=== PATIENT | female | born 1965 | race Caucasian/White ===

== ENCOUNTER 2017-10-04 10:19 | Day surgery (SDC) | payer OTHER ==
[2017-09-29 14:16] VITALS: BMI 29.2
[~2017-10-04 10:19] MED LIST: LACTATED RINGERS 1,000 ML IV SCH; LIDOCAINE 1% 20 ML VIAL (10MG/ML) FOR IV START INTRADERMA PRN
[2017-10-04 11:31] VITALS: RESP 16; TEMP 98.2
[2017-10-04] MEDS ORDERED: PROPOFOL 10 MG/ML 20 ML VIAL IV ONE (11:37)
[2017-10-04] MEDS ORDERED: fentaNYL (PF) 50 MCG/ML 2 ML AMP ONE (11:37)
[2017-10-04] MEDS ORDERED: LIDOCAINE 1% INJ 10MG/ML (20 ML MDV) ONE (11:37)
--- NOTE | 2017-10-04 11:39 | P.GSHP ---
History of Present Illness H&P Date: 10/04/17 Chief Complaint: Screening colonoscopy This is a 52-year-old female who presents today for screening colonoscopy. She denies a significant GI complaints. Past Medical History Past Medical History: GERD/Reflux History of Any Multi-Drug Resistant Organisms: None Reported Past Surgical History: Breast Surgery Additional Past Surgical History / Comment(s): rt breast surgery x3 to remove milk duct,rt fallopian tube removed D/T tubal preg Past Anesthesia/Blood Transfusion Reactions: No Reported Reaction Smoking Status: Current every day smoker - Past Family History Mother Family Medical History: No Reported History Father Family Medical History: Myocardial Infarction (ME) Additional Family Medical History / Comment(s): mult MIs Medications and Allergies Home Medications Medication Instructions Recorded Confirmed Type Esomeprazole Magnesium [NexIUM] 20 mg PO HS PRN 09/29/17 09/29/17 History Allergies Allergy/AdvReac Type Severity Reaction Status Date / Time codeine AdvReac severe Verified 10/04/17 11:19 heartburn Surgical - Exam Vital Signs Temp Pulse Resp BP Pulse Ox 98.2 F 95 16 122/77 100 10/04/17 11:26 10/04/17 11:26 10/04/17 11:26 10/04/17 11:26 10/04/17 11:26 - General well developed, no distress - Eyes PERRL - ENT normal pinna - Neck no masses - Respiratory normal expansion - Cardiovascular Rhythm: regular - Abdomen Abdomen: soft, non tender Assessment and Plan Assessment: We'll perform screening colonoscopy.
--- NOTE | 2017-10-04 11:58 | P.OP ---
Date of Procedure: 10/04/17 Preoperative Diagnosis: Screening colonoscopy Postoperative Diagnosis: Transverse colon polyp Procedure(s) Performed: Colonoscopy Anesthesia: MAC Surgeon: Ephraim Epps Pathology: other (Transverse colon polyp) Condition: stable Disposition: PACU Description of Procedure: The patient's placed on the endoscopy table in the lateral position. She received IV sedation. Digital rectal exam performed which revealed no abnormalities. Flexible colonoscope was then placed patient anus and passed throughout the entire colon. The ileocecal valve lesions. The cecum, and descending colon appeared normal. In the transverse colon there was a small polyp seen in this is removed with the cold forcep. The scope was then brought back into the descending and sigmoid colon and this was normal. Scope was then brought back the rectum and this was normal. Scope was withdrawn for patient.
[2017-10-04 12:40] VITALS: BP 120/85; PULSE 79
== END 2017-10-04 12:55 | disposition home or self-care (01) ==
LOC: ORWHC2ENDO 10:19
PROVIDERS: ATTEND Surgery
DX: Z12.11 Encounter for screening for malignant neoplasm of colon (principal); D12.3 Benign neoplasm of transverse colon; F17.210 Nicotine dependence, cigarettes, uncomplicated; K21.9 Gastro-esophageal reflux disease without esophagitis; Z79.899 Other long term (current) drug therapy; Z88.5 Allergy status to narcotic agent
CPT/HCPCS: 81025; 88305; 45380; J2001; J3010; J2704

== ENCOUNTER → 2017-11-27 | Outpatient (CLI) | payer OTHER ==
--- NOTE | 2017-11-28 14:39 | MM ---
Reason for exam: screening (asymptomatic). History: Patient had first child at age 33. Family history of breast cancer in maternal grandmother. Physical Findings: A clinical breast exam by your physician is recommended on an annual basis and results should be correlated with mammographic findings. MG 3D Screening Mammo W/Cad Bilateral CC and MLO view(s) were taken. No prior studies available for comparison. The breast tissue is heterogeneously dense. This may lower the sensitivity of mammography. There are two left upper outer quadrant masses at posterior depth likely nodes. Left retroareolar mass and upper central left masses are also seen at anterior depth. Right upper outer quadrant focal asymmetry at posterior depth. Right middle depth upper outer quadrant mass with calcifications and second mass just posterior to it. Right central, slightly lower outer quadrant mass at posterior depth. ASSESSMENT: Incomplete: need additional imaging evaluation, BI-RAD 0 RECOMMENDATION: Ultrasound of both breasts. [facility] will attempt to contact patient to return for ultrasound.
== END | disposition home or self-care (01) ==
LOC: RADMAMWWP 17:00
PROVIDERS: ATTEND Family Medicine
DX: Z12.31 Encounter for screening mammogram for malignant neoplasm of breast (principal); Z80.3 Family history of malignant neoplasm of breast
CPT/HCPCS: 77063; 77067

== ENCOUNTER → 2017-11-30 | Outpatient (CLI) | payer OTHER ==
--- NOTE | 2017-11-30 14:52 | USB ---
Reason for exam: additional evaluation requested from abnormal screening. History: Patient had first child at age 33. Family history of breast cancer in maternal grandmother. Physical Findings: Nurse Summary: 0.25cm movable nodule at 12 o'clock and 9 o'clock (nurse em). US Breast Workup JOSÉ Right breast ultrasound includes all four quadrants, the retroareolar region and axilla. Finding demonstrates a 5 x 4 x 4mm oval, cystic lesion at 12 o'clock, a 9 x 5 x 10mm lobular, solid, hypoechoic lesion at 1 o'clock, a 4 x 3 x 5mm oval, cystic lesion at 3 o'clock, a 9 x 6 x 9mm lobular, solid lesion at 6 o'clock and a 6 x 4 x 5mm lobular, hypoechoic lesion at 10 o'clock. Left breast ultrasound includes all four quadrants, the retroareolar region and axilla. Finding demonstrates a 5 x 4 x 5mm irregular, hypoechoic lesion at 2 o'clock, a 6 x 3 x 8mm lobular, oval, hypoechoic lesion at 2 o'clock, a 5 x 3 x 5mm oval, cystic lesion at 3 o'clock, a 8mm lymph node at 5 o'clock, a 4 x 3 x 5mm irregular, hypoechoic lesion at 8 o'clock and a 7 x 6 x 7mm oval, mixed, hypoechoic lesion at the posterior nipple. These results were verbally communicated with the patient and result sheet given to the patient on 11/30/17. ASSESSMENT: Probably benign, BI-RAD 3 RECOMMENDATION: Breast MRI of both breasts. Follow-up diagnostic mammogram and ultrasound of both breasts in 6 months.
== END | disposition home or self-care (01) ==
LOC: RADUSWWP 10:23
PROVIDERS: ATTEND Family Medicine
DX: R92.8 Other abnormal and inconclusive findings on diagnostic imaging of breast (principal)

== ENCOUNTER → 2018-09-21 | Outpatient (CLI) | payer OTHER ==
--- NOTE | 2018-09-21 08:18 | CT ---
EXAMINATION TYPE: CT brain wo con DATE OF EXAM: 09/21/2018 COMPARISON: None HISTORY: Syncope CT DLP: 999.8 mGycm Automated exposure control for dose reduction was used. FINDINGS: Ventricular systems consistent with the patient's age. There is no midline shift. Faint periventricul ar and white matter low-attenuation. No acute hemorrhage or mass effect. No midline shift. Calvarium intact. IMPRESSION: FAINT WHITE MATTER LOW-ATTENUATION IS NONSPECIFIC BE SEEN WITH REMOTE MICROVASCULAR ISCHEMIA OR DEMYE LINATING PROCESS. RECOMMEND FOLLOW-UP MRI.
== END | disposition home or self-care (01) ==
LOC: RADCTMAIN 07:25
PROVIDERS: ATTEND Family Medicine
DX: R55 Syncope and collapse (principal)
CPT/HCPCS: 70450